=== PATIENT | female | born 1980 ===

== ENCOUNTER 2021-12-10 07:30 | Inpatient (IN) | payer OTHER ==
[~2021-12-10] VITALS: Ht 157.5 cm; Wt 103.4 kg
[2021-12-10] MEDS ORDERED: GLUMETZA500 MG PO (08:41)
[2021-12-10] MEDS ORDERED: LOSARTAN-HCTZ1 EAC1 PO (08:42)
[2021-12-10] MEDS ORDERED: NORVASC2.5 M1 PO (08:42)
[2021-12-19] MEDS ORDERED: DOCUSATE SODIU100 MG PO (09:24)
[2021-12-19] MEDS ORDERED: IBUPROFEN600 MG PO (09:24)
[2021-12-19] MEDS ORDERED: ACETAMINOPHEN-1 EAC2 PO (09:24)
== END 2021-12-19 10:59 | disposition home or self-care (01) | DRG 743 ==
LOC: O/R 12-16 05:56 → SURH 12-16 07:30 → OB/GYN 12-16 15:11
PROVIDERS: ADMIT Obstetrics & Gynecology; ATTEND Obstetrics & Gynecology
PROC: 0UT70ZZ Resection of Bilateral Fallopian Tubes, Open Approach (ICD-10-PCS; 2021-12-16)
PROC: 0TJB8ZZ Inspection of Bladder, Via Natural or Artificial Opening Endoscopic (ICD-10-PCS; 2021-12-16)
PROC: 0UT90ZZ Resection of Uterus, Open Approach (ICD-10-PCS; principal; 2021-12-16 11:45)
DX: D25.1 Intramural leiomyoma of uterus (principal); D25.2 Subserosal leiomyoma of uterus; Z20.822 Contact with and (suspected) exposure to COVID-19; N72 Inflammatory disease of cervix uteri

== ENCOUNTER 2021-12-10 13:07 | Outpatient (CLI) | payer OTHER ==
[~2021-12-10 13:07] MED LIST: GLUMETZA500 MG PO; LOSARTAN-HCTZ1 EAC1 PO; NORVASC2.5 M1 PO
== END 2021-12-10 13:08 | disposition home or self-care (01) ==
LOC: LAB 13:07
PROVIDERS: ATTEND Internal Medicine
DX: B34.9 Viral infection, unspecified (principal)